=== PATIENT | female | born 1940 | race American Indian/Alaskan Native ===

== ENCOUNTER 2018-03-16 06:03 | Day surgery (SDC) | payer MEDICARE, OTHER ==
[~2018-03-16 06:03] MED LIST: ANCEF/STERILE WATER 2 GM/20 ML 2 GM/20 ML SYRINGE IV NR
[2018-03-16] MEDS ORDERED: NACL 0.9% 1000 ML 1,000 ML ONE (06:09)
[2018-03-16] MEDS ORDERED: NACL BACTERIOSTATIC INFILTRATI ONE (06:09)
[2018-03-16 07:06] LABS: Calcium 8.7 mg/dL (8.4-10.2)
[2018-03-16] MEDS ORDERED: GELFOAM TP ONE ×2 (07:32→08:55)
[2018-03-16] MEDS ORDERED: PROTAMINE SULFATE ONE (07:32)
[2018-03-16] MEDS ORDERED: THROMBIN (BOVINE) TP ONE ×2 (07:32→08:55)
[2018-03-16] MEDS ORDERED: XYLOCAINE 1% 20 mL ONE (07:32)
[2018-03-16] MEDS ORDERED: MARCAINE-EPI 0.5%-1:200,000 INFILTRATI ONE (07:32)
[2018-03-16] MEDS ORDERED: NACL 0.9% 500 ML 500 ML ONE (07:32)
[2018-03-16] MEDS ORDERED: PAPAVERINE ONE (07:32)
[2018-03-16] MEDS ORDERED: HEPARIN 10,000 UNITS/10 ML ONE (07:32)
[2018-03-16] MEDS ORDERED: NACL ONE (07:33)
[2018-03-16] MEDS ORDERED: SODIUM BICARBONATE ONE (07:33)
--- NOTE | 2018-03-16 07:55 | Anesthesia Day of Surgery ---
Anesthesia Day of Surgery - Day of Surgery Patient Examined: Yes Patient H&P Reviewed: Yes Patient is NPO: Yes Beta Blockers: Yes
[2018-03-16] MEDS ORDERED: DIPRIVAN 10 MG/ML IV ONE (07:57)
[2018-03-16] MEDS ORDERED: SUBLIMAZE ONE (07:57)
[2018-03-16] MEDS ORDERED: ZOFRAN ONE (07:57)
[2018-03-16] MEDS ORDERED: ZOFRAN IV PRN (07:59)
[2018-03-16] MEDS ORDERED: SUBLIMAZE IV PRN (07:59)
--- NOTE | 2018-03-16 07:59 | Anesthesia Consultation ---
Anesthesia Consult and Med Hx Date of service: 03/16/18 - Airway Anesthetic Teeth Evaluation: Dentures, Edentulous ROM Head & Neck: Adequate Mental/Hyoid Distance: Adequate Mallampati Class: Class III Intubation Access Assessment: Probably Good - Pulmonary Exam CTA: Yes - Cardiac Exam Cardiac Exam: No Murmur - Pre-Operative Health Status ASA Pre-Surgery Classification: ASA3 Proposed Anesthetic Plan: General - Pulmonary Hx Smoking: No Hx Asthma: No Hx Respiratory Symptoms: No SOB: No COPD: No Home Oxygen Therapy: No Hx Pneumonia: No (Pneumonia Shot 2010) Hx Sleep Apnea: Yes (No CPAP) - Cardiovascular System Hx Hypertension: Yes Hx Coronary Artery Disease: Yes Hx Heart Attack/AMI: No Hx Percutaneous Transluminal Coronary Angioplasty (PTCA): No Hx Pacemaker: No - Central Nervous System Hx Neuromuscular Disorder: No Hx Seizures: No CVA: No Hx Back Pain: Yes Hx Psychiatric Problems: No - Gastrointestinal Hx Ulcer: No Hx Gastroesophageal Reflux Disease: No - Endocrine Hx Renal Disease: Yes Hx End Stage Renal Disease: Yes (Last HD 03/15/18; K 5.4 DOS) Hx Liver Disease: No Hx Non-Insulin Dependent Diabetes: Yes Hx Hypothyroidism: Yes - Hematic Hx Sickle Cell Disease: No - Other Systems Hx Cancer: No Hx Obesity: Yes - Additional Comments Anesthesia Medical History Comments: Currently on medrol dose tim for "unknown allergic reaction" day 12/14.
[2018-03-16] MEDS ORDERED: SODIUM CHLORIDE FLUSH SYRINGE 10 ML IV NR (08:00)
[2018-03-16] MEDS ORDERED: NACL 0.9% 1000 ML 1,000 ML IV SCH (08:00)
[2018-03-16] MEDS ORDERED: XYLOCAINE MPF 2% ONE (08:15)
[2018-03-16] MEDS ORDERED: RIFADIN ONE (08:30)
[2018-03-16] MEDS ORDERED: MARCAINE-EPI/PF 0.5%-1:200,000 INFILTRATI ONE ×2 (08:55)
[2018-03-16] MEDS ORDERED: HEPARIN 10,000 UNITS/10 ML 2,000 UNIT in NACL 0.9% 500 ML 500 ML IR ONE (08:56)
[2018-03-16] MEDS ORDERED: NACL 0.9% IR ONE (08:56)
[2018-03-16] MEDS ORDERED: RIFADIN 600 MG in NACL 0.9% 50 ML IR ONE (08:57)
--- NOTE | 2018-03-16 10:19 | Short Stay Summary ---
Short Stay Documentation Date of service: 03/16/18 - History H&P: obtained from office - Allergies and Medications Current Medications: Allergies Latex, Natural Rubber Adverse Reaction (Verified 03/15/18 12:19) Swelling swelling around face and hands Home Medications Medication Instructions Recorded Confirmed Last Taken Type Amlodipine Besylate 10 mg PO DAILY 06/06/14 03/16/18 03/15/18 09:00 History Carvedilol 25 mg PO BID 06/06/14 03/16/18 03/16/18 05:00 History Hydralazine HCl [Apresoline TAB] 50 mg PO TID 06/06/14 03/16/18 06/05/14 History Levothyroxine Sodium 100 mcg PO DAILY 06/06/14 03/16/18 03/15/18 09:00 History Lisinopril 40 mg PO DAILY 06/06/14 03/16/18 03/16/18 05:00 History Omeprazole [PriLOSEC] 40 mg PO PRN PRN 06/06/14 03/16/18 Unknown History Rosuvastatin (Nf) [Crestor] 5 mg PO QHS 06/06/14 03/16/18 03/15/18 19:00 History Vit B Complx C/Folic Acid/Zinc 1 tab PO DAILY 06/06/14 03/16/18 03/15/18 09:00 History [Dialyvite 800-Zinc 15 mg Tab] Vitamin D3 1,000 mg PO 03/16/18 03/15/18 09:00 History Active Medications Fentanyl (Sublimaze) 50 mcg IV Q5MIN PRN PRN Reason: Pain , Severe (7-10) Stop: 03/16/18 16:00 Sodium Chloride (Nacl 0.9% 1000 Ml) 1,000 mls @ 42 mls/hr IV DIRECT AMBROSIO Cefazolin Sodium (Ancef/Sterile Water 2 Gm/20 Ml) 2 gm in 20 mls @ 80 mls/hr IV PREOP NR; Protocol Stop: 03/16/18 23:59 Ondansetron HCl (Zofran) 4 mg IV ONCE PRN PRN Reason: Nausea And Vomiting Stop: 03/16/18 13:00 Sodium Chloride (Sodium Chloride Flush Syringe 10 Ml) 10 ml IV PRN NR Stop: 03/16/18 13:00 - Brief post op/procedure progress note Date of procedure: 03/16/18 Pre-op diagnosis: failing av graft left arm Post-op diagnosis: same Procedure: replacement of left upper arm av graft with 7mm Accuseal Anesthesia: GETA, local (0.5% Marcaine w epi) Findings: excellent thrill at end of case Surgeon: BARI RILEY Estimated blood loss: minimal Pathology: none Condition: stable - Hospital course Hospital course: benign - Disposition Condition at discharge: Good Disposition: [id number] TO HOME OR SELFCARE Short Stay Discharge Plan Activity: advance as tolerated Diet: advance as tolerated Wound: per your surgeon's advice Follow up with: BARI RILEY MD [Staff Physician] - 14 Days Prescriptions: HYDROcodone/APAP 5-325 [Mobile 5/325] 1 each PO Q6HR PRN #20 tablet PRN Reason: Pain
--- NOTE | 2018-03-16 10:25 | Operative Report ---
Operative Report Operative Report: Date of procedure: 03/16/2018 Pre-operative diagnosis: Failing left upper extremity upper arm arteriovenous graft Post-operative diagnosis: Same Procedure name(s): Replacement of left upper extremity arteriovenous graft using 7 mm AcuSeal graft. Surgeon: Jam Muse MD Food Truck Caterer: None Anesthesia: Gen. with local supplementation using half percent Marcaine with epinephrine EBL: Minimal Operative indication: Patient is a 77-year-old woman with a failing arteriovenous graft in the left upper extremity. 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 She presents now for replacement of this graft. Findings: Excellent thrill and the new graft. Easily palpable left radial pulse. Procedure: The patient was placed on the table in supine position and given appropriate anesthesia. The area over the left arm was prepped with a ChloraPrep solution and draped in the usual sterile fashion. An incision was made over the venous side of the graft near the axilla. Dissection was carried out to identify the graft. The graft was surrounded with a vessel loop. A second incision was made transversely across the arm just above the elbow. The location of the incision was just above the arterial limb of the existing graft. This graft was also identified and surrounded with a vessel loop. A subcutaneous tunnel was made between the 2 incisions using a Ambar-Wick tunneler with an 8 mm head. The tunneling site was infiltrated with half percent Marcaine with epinephrine. The patient was given 2000 units of intravenous heparin. 3 minutes were allowed to pass. The venous limb was divided and spatulated. The new graft was divided and spatulated. The 7 mm portion of the graft was used. An end-to-end anastomosis was created using 5-0 Prolene. The anastomosis was completed. The 7 mm end of the graft distally was then anastomosed to the existing arterial venous graft. The existing limb appeared to be about a 4 mm graft. Both graft ends were spatulated and then anastomosed using 5-0 Prolene. The graft was flushed and vented to remove any air or debris. The anastomosis was completed and flow started into the graft with the development of an excellent thrill across the body of the graft. There was an easily palpable left radial pulse. Meticulous hemostasis was obtained in both wounds. Closure was done with 3-0 Vicryl and 4-0 subcuticular PDS. Sterile dressings were applied. The patient tolerated the procedure well. Sponge, needle, and instrument counts were reported as correct. The patient left the operating room with an easily palpable thrill in the arteriovenous graft and an easily palpable left radial pulse.
[2018-03-16] MEDS ORDERED: NORCO 5/325 PO PRN (10:31)
[2018-03-16 11:19] VITALS: BP 155/63
--- NOTE | 2018-03-16 12:20 | Post Anesthesia Evaluation ---
- Post Anesthesia Evaluation Patient Participated: Yes Airway Patent: Yes Stable Respiratory Function: Yes Nausea/Vomiting: No Temp > 96.8F: Yes Pain Manageable: Yes Adequeate Hydration: Yes Anesthesia Complications: No Block Receding Appropriately: Not Applicable Patient on Ventilator: No
== END 2018-03-16 11:51 | disposition home or self-care (01) ==
LOC: OR 06:03
PROVIDERS: ATTEND Surgery Vascular Surgery
DX: T82.510A Breakdown (mechanical) of surgically created arteriovenous fistula, initial encounter (principal); I12.0 Hypertensive chronic kidney disease with stage 5 chronic kidney disease or end stage renal disease; E11.22 Type 2 diabetes mellitus with diabetic chronic kidney disease; N18.6 End stage renal disease; E89.0 Postprocedural hypothyroidism; I25.10 Atherosclerotic heart disease of native coronary artery without angina pectoris; E78.00 Pure hypercholesterolemia, unspecified; M19.90 Unspecified osteoarthritis, unspecified site; G47.30 Sleep apnea, unspecified; Z79.82 Long term (current) use of aspirin; Z91.040 Latex allergy status; Z91.09 Other allergy status, other than to drugs and biological substances; Z98.42 Cataract extraction status, left eye; Z98.41 Cataract extraction status, right eye; Z90.49 Acquired absence of other specified parts of digestive tract; Z90.710 Acquired absence of both cervix and uterus; Z98.890 Other specified postprocedural states; Z79.899 Other long term (current) drug therapy; Y83.2 Surgical operation with anastomosis, bypass or graft as the cause of abnormal reaction of the patient, or of later complication, without mention of misadventure at the time of the procedure
CPT/HCPCS: 36415; 36830; 80048; 82962; A4649; C1768; J0690; J1644; J1720; J2405; J2704; J3010; J3490; J7030; J7040; J2440; J2720